=== PATIENT | male | born 1995 | race Caucasian/White ===

== ENCOUNTER 2020-04-08 18:38 | Emergency (ER) | payer BC, OTHER ==
[2020-04-08 18:43] VITALS: RESP 18; TEMP 98.8
[2020-04-08] MEDS ORDERED: DEXAMETHASONE SOD PHOSPHATE 10 MG/ML 1 ML VIAL IM STA (18:48)
[2020-04-08] MEDS ORDERED: FAMOTIDINE 20 MG/2 ML VIAL IV STA (18:50)
[2020-04-08] MEDS ORDERED: methylPREDNISolone SOD SUCCI 125 MG/2 ML VIAL IV STA (18:50)
[2020-04-08] MEDS ORDERED: SODIUM CHLORIDE 0.9% 500 ML 500 ML IV STA (18:50)
[2020-04-08] MEDS ORDERED: EPINEPHrine 1 MG/ML 1 ML AMP IM STA (18:50)
--- NOTE | 2020-04-08 18:51 | ED ---
General Adult HPI - General Chief complaint: Allergic Reaction Stated complaint: KIMO/facial swelling Time Seen by Provider: 04/08/20 18:46 Source: patient Mode of arrival: ambulatory Limitations: no limitations - History of Present Illness Initial comments: Patient presents to the ED with his significant other for evaluation. Patient states that he took a dose of Colace for the first time at about 1600 today, and about a half an hour later he developed pruritus to his face, as well as lip swelling. Patient also states that he has been having some difficulty swallowing since his symptoms began. Patient's significant other states that she gave the patient a dose of Benadryl 50mg at about 1730 today. Patient denies any other new medication use or known exposures today. Patient denies having any pain, fever or chills, rash, tongue swelling, dyspnea, palpations, dizziness, headache, chest pain, abdominal pain, nausea or vomiting, or any othe r symptoms or complaints. - Related Data Previous Rx's Medication Instructions Recorded EPINEPHrine (Auto Inject) [Epipen] 0.3 mg IM ONCE PRN 1 Days pen 04/08/20 diphenhydrAMINE [Benadryl] 50 mg PO TID PRN #10 capsule 04/08/20 predniSONE [Deltasone] 20 mg PO BID #10 tab 04/08/20 Allergies Allergy/AdvReac Type Severity Reaction Status Date / Time aspirin Allergy Rash/Hives Verified 04/08/20 18:44 bee pollen Allergy Rash/Hives Verified 04/08/20 18:44 Review of Systems ROS Statement: Those systems with pertinent positive or pertinent negative responses have been documented in the HPI. ROS Other: All systems not noted in ROS Statement are negative. Past Medical History Past Medical History: Asthma History of Any Multi-Drug Resistant Organisms: None Reported Past Surgical History: No Surgical Hx Reported Past Psychological History: No Psychological Hx Reported Smoking Status: Current some day smoker Past Alcohol Use History: Occasional Past Drug Use History: None Reported General Exam Limitations: no limitations General appearance: alert, in no apparent distress Head exam: Present: atraumatic, normocephalic Eye exam: Present: normal appearance, EOMI ENT exam: Present: mucous membranes moist, other (A moderate amount of angioedema is noted to upper and lower lips diffusely; there is no evidence of swelling or angioedema noted to the tongue or oropharynx) Neck exam: Present: other (Trachea is in midline) Respiratory exam: Present: normal lung sounds bilaterally. Absent: respiratory distress, wheezes, rales, rhonchi, stridor Cardiovascular Exam: Present: regular rate, normal rhythm, normal heart sounds, other (Normal radial pulses bilaterally) GI/Abdominal exam: Present: soft. Absent: distended, tenderness, guarding Extremities exam: Absent: pedal edema Neurological exam: Present: alert, oriented X3. Absent: motor sensory deficit Psychiatric exam: Present: normal affect, normal mood Skin exam: Present: warm, dry, intact, normal color. Absent: rash Course Vital Signs 04/08/20 04/08/20 04/08/20 18:41 19:53 20:04 Temperature 98.8 F Pulse Rate 103 H 96 96 Respiratory 18 18 18 Rate Blood Pressure 121/77 136/64 126/86 O2 Sat by Pulse 98 97 96 Oximetry - Reevaluation(s) Reevaluation #1: 04/08/20 19:57 Patient states that his pruritus and symptoms have all now resolved. Patient's lip angioedema has resolved on examination. Patient remains alert and breathing comfortably with a normal room air oxygen saturation. Patient continues to have no evidence of tongue or oropharyngeal swelling or angioedema on examination. Will discharge patient home with his significant other at this time. Patient was counseled about ALLERGIC reactions, and he was clearly explained return and follow-up instructions. He was instructed to return to the ED should he develop tongue/lip/throat swelling, trouble breathing or swallowing, any significant pain, feeling dizzy or faint, or new or worsening symptoms. Patient feels comfortable with this plan. Disposition Clinical Impression: Allergic reaction Disposition: HOME SELF-CARE Condition: Stable Instructions (If sedation given, give patient instructions): Angioedema (ED), General Allergic Reaction (ED) Additional Instructions: Return to the ER immediately should you develop tongue/lip/throat swelling, trouble breathing or swallowing, any significant pain, feeling dizzy or faint, or new or worsening symptoms. Follow up closely with your primary care provider. Prescriptions: diphenhydrAMINE [Benadryl] 50 mg PO TID PRN #10 capsule PRN Reason: Allergic Reaction predniSONE [Deltasone] 20 mg PO BID #10 tab EPINEPHrine (Auto Inject) [Epipen] 0.3 mg IM ONCE PRN 1 Days pen PRN Reason: Anaphylaxis Is patient prescribed a controlled substance at d/c from ED?: No Referrals: None,Stated [REFERRING] - 1-2 days Melina Camara MD [REFERRING] - 1-2 days Time of Disposition: 20:08
[2020-04-08 19:54] VITALS: PULSE 96
[2020-04-08 20:05] VITALS: BP 126/86
== END 2020-04-08 20:16 | disposition home or self-care (01) ==
LOC: EC 18:38
DX: T78.3XXA Angioneurotic edema, initial encounter (principal); T47.4X5A Adverse effect of other laxatives, initial encounter; F17.200 Nicotine dependence, unspecified, uncomplicated; Z88.6 Allergy status to analgesic agent; Z91.030 Bee allergy status
CPT/HCPCS: 99284; 96374; 96375; 96372; J0171; J2930